=== PATIENT | female | born 1980 | race Caucasian/White ===

== ENCOUNTER → 2021-06-03 | Outpatient (CLI) | payer OTHER ==
[~2021-06-03] MED LIST: K-DUR 20MEQ20 MEQ PO
== END | disposition home or self-care (01) ==
LOC: US 13:27
PROVIDERS: ATTEND Family Medicine
DX: R92.8 Other abnormal and inconclusive findings on diagnostic imaging of breast (principal); N64.59 Other signs and symptoms in breast